=== PATIENT | female | born 1935 | race Hispanic/Latino ===

== ENCOUNTER 2022-02-23 09:01 | Emergency (ER) | payer MEDICARE ==
[~2022-02-23] VITALS: Ht 142.2 cm; Wt 77.1 kg
[~2022-02-23 09:01] MED LIST: ALEVE220 MG PO; ASPIRIN325 MG PO; DOK250 MG PO; HYDROCODON-ACE1 EAC8 PO; IRON27 MG PO; KETOROLAC TROME10 MG PO; MIRALAX17 GM PO; NORCO 7.5-3251 EACH PO; OXYCODONE HCL5 MG PO; TYLENOL325 MG PO; VITAMIN C1000 MG PO; XARELTO10 MG PO
[2022-02-23] MEDS ORDERED: PREDNISONE20 MG PO (11:59)
[2022-02-23] MEDS ORDERED: CEPHALEXIN500 MG PO (11:59)
== END 2022-02-23 12:11 | disposition home or self-care (01) ==
LOC: ED 09:01
DX: L03.116 Cellulitis of left lower limb (principal)
CPT/HCPCS: 36415; 80048; 85025; 85379; 85651; 86140; 93971; 99284-25

== ENCOUNTER 2022-02-26 11:48 | Emergency (ER) | payer MEDICARE ==
[~2022-02-26] VITALS: Ht 142.2 cm; Wt 77.1 kg
[~2022-02-26 11:48] MED LIST changes: +CEPHALEXIN500 MG PO; +PREDNISONE20 MG PO
--- OUTSIDE RECORDS SUMMARY | 2022-02-26 11:56 | XMS ---
PreManage Notification: RACHAEL REILLY Security Psychiatric Attendant Events No recent Security Events currently on file CRITERIA MET - [facility] - 2 Visits in 30 Days CARE PROVIDERS There are no care providers on record at this time. Eneida has no Care Guidelines for this patient. [facility] (12 MO.) [facility] NOTE: Visits indicate total known visits. [facility] [place] VISIT TRACKING (12 MO.) [facility] COMPLAINT: - DIFFICULTY BREATHING, CHEST PAIN, LOWER BACK PAIN 02/23/2022 09:03 [facility] TYPE: Emergency COMPLAINT: - L LEG PAIN DIAGNOSES: - Cellulitis of left lower limb INPATIENT VISIT TRACKING (12 MO.) No inpatient visits to display in this time frame [email or web address]
[2022-02-26] MEDS ORDERED: K-TAB ER20 MEQ PO (13:52)
[2022-02-26] MEDS ORDERED: FUROSEMIDE20 MG PO (13:52)
--- NOTE | 2022-02-26 21:56 | EKG ---
[facility] [address] [facility] [address] [facility] [place], [place] [address] Signed Normal sinus rhythm Normal ECG No previous ECGs available Confirmed by Delfino Kim MD () on 02/26/2022 9:56:21 PM Electronically Signed By: DELFINO KIM MD 02/26/22 2156 PATIENT NAME: RACHAEL REILLY Electrocardiogram DATE OF : 37 PHYSICIAN: DELFINO KIM MD REPORT #: [id number] REPORT IS CONFIDENTIAL AND NOT TO BE RELEASED WITHOUT AUTHORIZATION
== END 2022-02-26 15:15 | disposition home or self-care (01) ==
LOC: ED 11:48
DX: I50.9 Heart failure, unspecified (principal); Z79.899 Other long term (current) drug therapy; Z79.52 Long term (current) use of systemic steroids
CPT/HCPCS: 36415; 71045; 80053; 83880; 84484; 85025; 93005; 93010; 96374; 99285-25; A9270; J1940